=== PATIENT | female | born 1945 | race Caucasian/White ===

== ENCOUNTER → 2021-09-18 | Outpatient (CLI) | payer MEDICARE ==
--- NOTE | 2021-09-18 15:10 | MM ---
Reason for exam: additional evaluation requested from prior study. Last mammogram was performed 2 years and 2 months ago. History: Patient is postmenopausal. Family history of breast cancer in maternal aunt. Benign excisional biopsy of the left breast, 1989. Physical Findings: A clinical breast exam by your physician is recommended on an annual basis and results should be correlated with mammographic findings. MG 3D Diag Mammo W/Cad YONI Bilateral CC and MLO view(s) were taken. Prior study comparison: July 29, 2019, mammogram, performed at [facility]. The breast tissue is heterogeneously dense. This may lower the sensitivity of mammography. Stable benign calcifications. There is no discrete abnormality including area of concern. These results were verbally communicated with the patient and result sheet given to the patient on 09/18/21. ASSESSMENT: Incomplete: need additional imaging evaluation, BI-RAD 0 RECOMMENDATION: Ultrasound of both breasts. Manage patient on a clinical basis.
--- NOTE | 2021-09-21 08:29 | USB ---
Reason for exam: additional evaluation requested from abnormal screening. History: Patient is postmenopausal. Family history of breast cancer in maternal aunt. Benign excisional biopsy of the left breast, 1989. Physical Findings: A clinical breast exam by your physician is recommended on an annual basis and results should be correlated with mammographic findings. US Breast BILAT Technologist: Edilma Sandoval Right complete breast ultrasound includes all four quadrants, the retroareolar region and axilla. Finding demonstrates a no cystic or solid lesion seen. Left complete breast ultrasound includes all four quadrants, the retroareolar region and axilla. Finding demonstrates duct ectasia at 3 o'clock and the nipple. These results were verbally communicated with the patient and result sheet given to the patient on 09/18/21. ASSESSMENT: Benign, BI-RAD 2 RECOMMENDATION: Routine screening mammogram of both breasts in 1 year. Manage patient on a clinical basis. Can compare with outside previous if/when becomes available.
== END | disposition home or self-care (01) ==
LOC: RADMAMWWP 13:43
PROVIDERS: ATTEND Family Medicine
DX: N64.4 Mastodynia (principal); Z78.0 Asymptomatic menopausal state; Z80.3 Family history of malignant neoplasm of breast
CPT/HCPCS: 77066; 76641; G0279; 77062

== ENCOUNTER → 2022-01-05 | Outpatient (CLI) | payer MEDICARE ==
[~2022-01-05] MED LIST: DOBUTamine DRIP for NUC MED 500 MG in DEXTROSE/WATER 1 250ML.BAG IV PRN; DOBUTamine DRIP for NUC MED 500 MG/250 ML BAG IV ONE
--- NOTE | 2022-01-05 14:44 | ECHOS ---
STRESS ECHOCARDIOGRAM INDICATION: Dyspnea. BASELINE HEART RATE: 55 BASELINE BLOOD PRESSURE: 150/82 MAXIMUM HEART RATE: 124 MAXIMUM BLOOD PRESSURE: 145/53 85% MPHR: 121 100% MPHR: 141 METS: MAXIMUM STAGE REACHED: TOTAL EXERCISE TIME: RESULTS: Baseline EKG shows sinus rhythm, normal axis, and poor R-wave progression suggestive of prior anteroseptal myocardial infarction. The patient was given intravenous dobutamine over a period of 6 minutes as per protocol, achieving 88% of predicted maximal heart rate and there was [address]-segment depression noted in the inferolateral leads. Baseline echo shows normal left ventricular size and systolic function with an ejection fraction of 60%. There is hypokinesis involving the inferior wall motion suggestive of prior anteroseptal myocardial infarction. Post dobutamine infusion, there is normal hyperdynamic response of anterior wall, lateral wall, septum and mid to distal inferior wall. Basal inferior wall appears hypokinetic. CONCLUSIONS: 1. Abnormal stress test by EKG criteria. 2. Abnormal dobutamine stress echo showing evidence of small prior basal inferior wall myocardial infarction without any evidence of dobutamine induced ischemia. MMODL / IJN: [id number] /
== END ==
LOC: RADNMMAIN 01-04 09:08
PROVIDERS: ATTEND Family Medicine
DX: R06.09 Other forms of dyspnea (principal); R94.39 Abnormal result of other cardiovascular function study
CPT/HCPCS: 93351

== ENCOUNTER → 2022-01-28 | Outpatient (CLI) | payer MEDICARE ==
[2022-01-28 17:47] LABS: HGB 12.6 g/dL (12.0-15.0); MCH 30.3 pg (27.0-32.0); MCHC 30.7 g/dL (32.0-37.0); MCV 98.6 fL (80.0-97.0); Mean Platelet Volume 12.6 fL (9.5-12.2); NRBC Per 100 WBC 0 /100 WBCS (0.0-0.0); Platelet Count 294 X 10*3/uL (140-440); RBC 4.16 X 10*6/uL (4.10-5.20); RDW 13.2 % (11.5-14.5); WBC 8.49 X 10*3/uL (4.50-10.00)
[2022-01-28 18:12] LABS: African American GFR (CKD) 58.9 (60.0-200.0); Anion Gap 10.8 mmol/L (10.00-18.00); Blood Urea Nitrogen 18.1 mg/dL (9.0-27.0); Carbon Dioxide 26.3 mmol/L (20.0-27.5); Non-African American GFR(CKD) 50.8 (60.0-200.0); Potassium 5.2 mmol/L (3.5-5.5)
== END | disposition home or self-care (01) ==
LOC: LABPAT 11:11
PROVIDERS: ATTEND Internal Medicine Interventional Cardiology
DX: Z01.812 Encounter for preprocedural laboratory examination (principal); I10 Essential (primary) hypertension; I70.213 Atherosclerosis of native arteries of extremities with intermittent claudication, bilateral legs; I65.23 Occlusion and stenosis of bilateral carotid arteries
CPT/HCPCS: 36415; 80051; 82565; 84520; 85027

== ENCOUNTER 2022-02-09 06:53 | Day surgery (SDC) | payer MEDICARE ==
[2022-02-05 12:19] VITALS: BMI 28.5
[~2022-02-09 06:53] MED LIST changes: +ALPRAZolam 0.25 MG TAB PO PRN; +ALPRAZolam 0.5 MG TAB PO PRN; -DOBUTamine DRIP for NUC MED 500 MG in DEXTROSE/WATER 1 250ML.BAG IV PRN; -DOBUTamine DRIP for NUC MED 500 MG/250 ML BAG IV ONE; +NITROGLYCERIN SL TABS 0.4 MG TAB SUBLINGUAL PRN; +SODIUM CHLORIDE 0.9% 1,000 ML in EMPTY BAG 1 BAG IV SCH
[2022-02-09] MEDS ORDERED: ASPIRIN 325 MG TAB PO ONE (07:00)
[2022-02-09] MEDS ORDERED: SODIUM CHLORIDE 0.9% 1,000 ML IV ONE (07:06)
[2022-02-09 07:23] VITALS: TEMP 98.5
[2022-02-09] MEDS ORDERED: VERAPAMIL 2.5 MG/ML 2 ML AMP ONE (09:03)
[2022-02-09] MEDS ORDERED: HEPARIN SODIUM 1,000 UN/ML (10ML VL) ONE (09:22)
[2022-02-09] MEDS ORDERED: MIDAZOLAM 2 MG/2 ML VIAL IV ONE (09:27)
[2022-02-09] MEDS ORDERED: LIDOCAINE 1% INJ 10MG/ML (5 ML VIAL-PF) SQ ONE (09:29)
[2022-02-09] MEDS ORDERED: VERAPAMIL SYRINGE (5 MG/10 ML) INTRAARTER ONE (09:30)
[2022-02-09] MEDS ORDERED: HEPARIN SODIUM 1,000 UN/ML (10ML VL) IV ONE (09:31)
[2022-02-09] MEDS ORDERED: HYDROmorphone 0.5 MG/0.5 ML SYRINGE IVP ONE (09:31)
[2022-02-09] MEDS ORDERED: ENALAPRILAT 1.25 MG/ML 1 ML VIAL ONE (09:33)
[2022-02-09] MEDS ORDERED: hydrALAZINE HCL 20 MG/ML 1 ML VIAL ONE (09:33)
[2022-02-09] MEDS ORDERED: hydrALAZINE HCL 20 MG/ML 1 ML VIAL IV ONE (09:35)
[2022-02-09] MEDS ORDERED: ENALAPRILAT 1.25 MG/ML 1 ML VIAL IV ONE (09:36)
[2022-02-09] MEDS ORDERED: IOPAMIDOL-370 125ML BTL INJ ONE (09:38)
[2022-02-09] MEDS ORDERED: RX INFO: IV CONTRAST WAS GIVEN 1 EACH MISC MISCELLANE PRN (09:46)
--- NOTE | 2022-02-09 09:56 | P.PCN ---
Date of Procedure: 02/09/22 Operative Findings: CARDIAC CATHETERIZATION PERFORMING PHYSICIAN: Neil Hercules MD, RPVI PROCEDURE PERFORMED: 1. Selective right and left coronary angiogram 2. Left heart catheterization INDICATION: This is a 76-year-old female patient was distal to be he was experiencing symptoms of chest pain and shortness of breath with exertion concerning for angina. She underwent dobutamine stress echocardiogram and that came in to be abnormal. In the light of that a heart catheterization was advised COMPLICATION: None APPROACH: Right radial artery LEVEL OF SEDATION: Moderate with a sedation length of 20 minutes PROCEDURE DESCRIPTION: After obtaining an informed consent, the patient was brought to cardiac label printing machinist. Local anesthesia was performed using lidocaine subcutaneously. The right radial artery was cannulated using Seldinger technique, the guidewire passed easily, following that we advanced a 5-Mauritanian sheath dilator assembly, the wire and dilator were removed and sheath was flushed. Following that, 2 mg of verapamil along with 3000 unit heparin were given. Selective right and left coronary angiogram using a 6-Mauritanian JR4 and JL 3.5 catheters. Following that we did left heart catheterization using the JR4 catheter which across aortic valve. The procedure was completed there was no complication. SELECTIVE CORONARY ANGIOGRAM: The right coronary artery: Is a large caliber vessel and a dominant vessel. The RCA has mild disease in the midportion. Distally bifurcates into PDA and PLV branches both appeared to be angiographically normal Left main: Has ostial lesion appeared to be in the range of 70%. The left main is calcified The left circumflex: Is a moderate caliber vessel and nondominant vessel. It has mild disease only The left anterior descending artery: Is a large caliber vessel. The LAD itself appeared to be angiographically normal. Rises into a Diagonal Branch Which Seems to Be Angiographically Normal. HEMODYNAMICS: The LVEDP was 20 mmHg was no significant gradient across aortic valve CONCLUSION: 1. 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 Elevated left-sided filling pressures POSTPROCEDURE MANAGEMENT: #1 discuss the option of revascularization including coronary artery that is grafting versus PCI #2 start the patient on anti-ischemic medications including beta jayesh #3 start the patient on high intensity statin #4 follow-up with the patient
[2022-02-09] MEDS ORDERED: SODIUM CHLORIDE 0.9% 1,000 ML IV SCH (10:00)
[2022-02-09 13:07] VITALS: RESP 16
[2022-02-09] MEDS ORDERED: METOPROLOL SUCCINATE (ER) 25 MG TAB.ER.24H PO SCH (13:15)
[2022-02-09] MEDS ORDERED: ACETAMINOPHEN TAB 325 MG TAB ONE (13:27)
[2022-02-09 14:24] VITALS: BP 136/82; PULSE 62
== END 2022-02-09 14:24 | disposition home or self-care (01) ==
LOC: CATHCVL 06:53
PROVIDERS: ATTEND Internal Medicine Interventional Cardiology
DX: I25.10 Atherosclerotic heart disease of native coronary artery without angina pectoris (principal); I25.84 Coronary atherosclerosis due to calcified coronary lesion; E78.00 Pure hypercholesterolemia, unspecified; I10 Essential (primary) hypertension; Z72.0 Tobacco use; I65.23 Occlusion and stenosis of bilateral carotid arteries; Z20.822 Contact with and (suspected) exposure to COVID-19; Z82.49 Family history of ischemic heart disease and other diseases of the circulatory system; Z79.1 Long term (current) use of non-steroidal anti-inflammatories (NSAID); Z79.890 Hormone replacement therapy; Z79.899 Other long term (current) drug therapy
CPT/HCPCS: 93458; 87635; C1769; C1894; J2250; J0360; J2001; J1644; J1170; Q9967

== ENCOUNTER → 2022-09-27 | Outpatient (CLI) | payer MEDICARE ==
--- NOTE | 2022-09-28 17:16 | MM ---
Reason for Exam: Screening (asymptomatic). Last screening mammogram was performed 12 month(s) ago. Patient History: Menarche at age 9. First Full-Term at age 13. Hysterectomy at age 38. Postmenopausal. 1989, Benign Excisional Biopsy on the left side. Maternal aunt had breast cancer, age 75. Risk Values: Suzy 5 year model risk: 1.6%. NCI Lifetime model risk: 2.6%. Prior Study Comparison: 07/29/2019 Screening Mammogram, [facility]. 09/18/2021 Bilateral Diagnostic Mammogram, [facility]. Tissue Density: There are scattered fibroglandular densities. Findings: Analyzed By CAD. Pattern appears symmetrical and stable. Benign vascular calcification is present bilaterally. There are a few scattered punctate calcifications bilaterally. No significant interval changes are evident. No suspicious groups of microcalcifications, spiculated or lobular masses, architectural distortion or other secondary signs of malignancy are mammographically apparent. Overall Assessment: Benign, BI-RAD 2 Management: Screening Mammogram of both breasts in 1 year. A negative mammogram report should not preclude additional follow up of suspicious palpable abnormalities. Patient should continue monthly self breast exam. A clinical breast exam by your physician is recommended on an annual basis and results should be correlated with mammographic findings. Electronically signed and approved by: Ameya Hannon D.O. Radiologis
== END | disposition home or self-care (01) ==
LOC: RADMAMWWP 14:40
PROVIDERS: ATTEND Family Medicine
DX: Z12.31 Encounter for screening mammogram for malignant neoplasm of breast (principal); Z78.0 Asymptomatic menopausal state; Z80.3 Family history of malignant neoplasm of breast; Z98.890 Other specified postprocedural states
CPT/HCPCS: 77063; 77067

== ENCOUNTER → 2023-02-08 | Outpatient (CLI) | payer MEDICARE ==
--- NOTE | 2023-02-08 14:52 | US ---
EXAMINATION TYPE: US arterial LE single level DATE OF EXAM: 02/08/2023 1:17 PM CLINICAL INDICATION: Female, 77 years old with history of I73.9 PERIPHERAL VASCULAR DISEASE; History of: Smoker: Previous Hypertension: Yes Diabetic: No Hyperlipidemia: No TIA/CVA: No Previous Vascular Surgery: Yes AK: No Vascular Ulcers: No Claudication: Yes Gangrene: No Doppler Waveforms: Right: Multiphasic Left: Multiphasic Right Brachial Pressure: 135 Left Brachial Pressure: 143 Ankle-Brachial Indices: Right: 1.10 Left: 1.05 Toe Brachial Indices: Right: 0.59 Left: 0.59 IMPRESSION: 1. Normal PANKAJ indices. 2. Borderline normal TBI indices.
== END | disposition home or self-care (01) ==
LOC: RADUSWWP 12:14
PROVIDERS: ATTEND Family Medicine
DX: I73.9 Peripheral vascular disease, unspecified (principal)
CPT/HCPCS: 93922

== ENCOUNTER → 2024-12-14 | Outpatient (CLI) | payer MEDICARE ==
--- NOTE | 2024-12-14 08:39 | CT ---
EXAMINATION TYPE: CT abdomen pelvis wo con DATE OF EXAM: 12/14/2024 COMPARISON: NONE CLINICAL INDICATION: Female, 79 years old with history of K57.90 diverticulitis, Diverticulitis., TECHNIQUE: CT scan of the abdomen and pelvis is performed , patient injected with mL of ., (none if empty) Oral contrast used: without Oral Contrast (none if empty) CT DLP: 485.5 mGycm, Automated exposure control for dose reduction was used. FINDINGS: Within the limitations of a noncontrast study, the following observations are made. LUNG BASES: No significant abnormality is appreciated. LIVER/GB: No significant abnormality is appreciated. PANCREAS: No significant abnormality is seen. SPLEEN: No significant abnormality is seen. ADRENALS: No significant abnormality is seen. KIDNEYS: No renal stones or hydronephrosis is seen bilaterally. Incidental 1.2 cm simple cortical cys t right kidney which does not require follow-up BOWEL: Slightly suboptimal evaluation without enteric contrast. Distal colonic diverticulosis. No con vincing CT evidence for acute diverticulitis. No abnormal small or large bowel dilatation. There is w [place] left lateral anterior pelvic wall hernia containing nondilated bowel loops. Low-lying cecum into the right pelvis. UTERUS/ADNEXA: Uterus is surgically absent or markedly atrophic in appearance. LYMPH NODES: No greater than 1cm abdominal or pelvic lymph nodes are appreciated. OSSEOUS STRUCTURES: Grade 1 anterolisthesis L4 on L5. Moderate to severe narrowing in both hip joints OTHER: Moderate calcified plaque of the aorta extends into iliac branch vessels. IMPRESSION: 1. Suboptimal without enteric contrast. Distal colonic diverticulosis. No convincing CT evidence for acute diverticulitis. 2. There is a [place] left lateral ventral wall hernia containing nondilated bowel loops. Advise [place] [facility] referral. [facility], , 12/14/2024 8:36 AM
== END | disposition home or self-care (01) ==
LOC: RADCTMAIN 07:55
PROVIDERS: ATTEND Emergency Medicine
DX: K44.9 Diaphragmatic hernia without obstruction or gangrene (principal); K57.32 Diverticulitis of large intestine without perforation or abscess without bleeding
CPT/HCPCS: 74176